=== PATIENT | female | born 1975 | race Caucasian/White ===

== ENCOUNTER 2017-07-30 14:38 | Emergency (ER) | payer BC, OTHER ==
[2017-07-30 15:43] VITALS: BP 116/74; PULSE 73; O2SAT 98
--- NOTE | 2017-07-30 15:43 | ERPHSYRPT ---
- History of Present Illness Time Seen by Provider: 07/30/17 15:38 Source: patient Exam Limitations: no limitations Patient Subjective Stated Complaint: sore throat , stuffy nose, feels terrible Triage Nursing Assessment: patient alert and oriented x3, ambulates well, gait is steady, skin warm dry and intact, pupils perrla2, lung sounds celar, nasal congestion, intermittant coughing, throat is red, . no other issues noted ears have some wax, tender upon examination no blockage of wax clogged inside Physician History: c/o sore throat, sinus congestion, for 2-3 days Timing/Duration: gradual onset ENT Location: ear (R), ear (L), throat Prearrival Treatment: over the counter meds Associated Symptoms: ear pain (R), ear pain (L), cough, nasal congestion/ drainage, sinus infection Allergies/Adverse Reactions: No Known Drug Allergies Allergy (Unverified 09/05/13 23:57) Hx Tetanus, Diphtheria Vaccination/Date Given: Yes Hx Influenza Vaccination/Date Given: No Hx Pneumococcal Vaccination/Date Given: No Immunizations Up to Date: Yes - Review of Systems Constitutional: No Symptoms Eyes: No Symptoms Ears, Nose, & Throat: Nose Congestion, Sinus Drainage, Throat Pain Respiratory: Cough Cardiac: No Symptoms Abdominal/Gastrointestinal: No Symptoms Genitourinary Symptoms: No Symptoms - Past Medical History Pertinent Past Medical History: No Neurological History: No Pertinent History ENT History: No Pertinent History Cardiac History: No Pertinent History Respiratory History: No Pertinent History Endocrine Medical History: No Pertinent History Musculoskeletal History: No Pertinent History GI Medical History: No Pertinent History History: No Pertinent History - Past Surgical History Past Surgical History: Yes Female Surgical History: Section Other Surgical History: - Social History Smoking Status: Never smoker Exposure to second hand smoke: No Drug Use: none Patient Lives Alone: No - Female History Hx Now: No - Nursing Vital Signs Nursing Vital Signs: Initial Vital Signs Temperature 97.8 F 07/30/17 14:38 Pulse Rate 77 07/30/17 14:38 Respiratory Rate 16 07/30/17 14:38 Blood Pressure 107/70 07/30/17 14:38 O2 Sat by Pulse Oximetry 99 07/30/17 14:38 Pain Scale Pain Intensity 4 - Physical Exam General Appearance: no apparent distress Eye Exam: bilateral eye: normal inspection Ear Exam: bilateral ear: auricle normal, TM normal Nasal Exam: sinus tenderness Throat Exam: moist mucus membranes Neck Exam: normal inspection Cardiovascular/Respiratory Exam: chest non-tender, normal breath sounds Abdominal Exam: non-tender SpO2 Interpretation: normal SpO2: 98 Oxygen Delivery: Room Air - Course Nursing assessment & vital signs reviewed: Yes - Progress Progress: unchanged Counseled pt/family regarding: diagnosis, need for follow-up - Departure Time of Disposition: 15:41 Departure Disposition: Home Clinical Impression: Sinusitis, acute maxillary Qualifiers: Recurrence: non-recurrent Qualified Code(s): J01.00 - Acute maxillary sinusitis , unspecified Condition: Stable Critical Care Time: No Referrals: MARTIR TOMLINSON [Primary Care Provider] - Instructions: Sinusitis Additional Instructions: UPPER RESPIRATORY INFECTIONS 1. The signs and symptoms of a cold may last up to 10 days. These illnesses are due to viruses which are not treatable with antibiotics. 2. The following suggestions can aid in recovery and to minimize symptoms: A. Increase fluid intake. B. Acetaminophen or Ibuprofen as directed. C. Avoid smoking environments as this will increase the risk of developing pneumonia. D. For children, may use a cool mist vaporizer in the child's room. 3. Contact your Family Physician if you note: A. Persisten fever >103 for more than 3 days B. Breathing difficulty C. Productive cough of yellow/green sputum D. Illness greater than 7 days E. Persistent vomiting F. Stiff neck Please follow the instructions given to you. Please take your medication as prescribed if given. If symptoms recur or get worse, come back to the emergency room if you cannot reach your primary care physician, or call your primary care physician for an appointment. Again if your symptoms get worse, come back to the emergency room. Thanks for visiting emergency room, and let us take care of you. Prescriptions: Amoxicillin 500 mg PO TID #30 tablet Guaifenesin/Dextromethorphan [Mucinex Dm ER 600-30 mg Tablet] 1 each PO BID #20 [id number]
== END 2017-07-30 15:50 | disposition home or self-care (01) ==
LOC: ED 14:38
DX: J01.00 Acute maxillary sinusitis, unspecified (principal)
CPT/HCPCS: 99282; 99283

== ENCOUNTER 2017-08-22 17:16 | Emergency (ER) | payer OTHER ==
[2017-08-22 17:33] VITALS: O2SAT 98
[2017-08-22] MEDS ORDERED: TORAdol 30 mg Injection IM ONE (17:49)
[2017-08-22] MEDS ORDERED: TORAdol 30 mg Injection ONE (17:52)
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
[2017-08-22 19:12] LABS: Bilirubin NEGATIVE (NEGATIVE); Collection Type CLEAN CATCH; Glucose NEGATIVE (NEGATIVE); Leukocyte Esterase NEGATIVE (NEGATIVE)
[2017-08-22 19:13] LABS: Blood TRACE NON-HEM Ery/ul (0-5); COMPLETE URINE MICROSCOPIC? YES
[2017-08-22 19:14] LABS: ADD URINE CULTURE? YES (NO); Bacteria FEW /HPF (NEGATIVE); Epithelial Cells MODERATE /HPF (FEW); WBC 0-2 /HPF (0-5)
[2017-08-22 19:36] VITALS: BP 119/73; PULSE 81
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
== END 2017-08-22 20:10 | disposition home or self-care (01) ==
LOC: ED 17:16
DX: S16.1XXA Strain of muscle, fascia and tendon at neck level, initial encounter (principal); S20.212A Contusion of left front wall of thorax, initial encounter; S80.02XA Contusion of left knee, initial encounter; V49.49XA Driver injured in collision with other motor vehicles in traffic accident, initial encounter
CPT/HCPCS: 71020; 72040; 73560; 81000; 87077; 87086; 87186; 96372; 96374; 99282; 99284; J1885

== ENCOUNTER 2019-01-09 13:08 | Emergency (ER) | payer MEDICAID, OTHER ==
[2019-01-09 13:20] VITALS: BP 127/85
[2019-01-09] MEDS ORDERED: Rocephin 1000 MG INJ IM ONE (13:29)
[2019-01-09] MEDS ORDERED: XYLOCAINE HCl Viscous MM ONE (13:30)
[2019-01-09] MEDS ORDERED: Marcaine 0.5%/Epinephrine 10 ML IJ ONE (13:30)
[2019-01-09] MEDS ORDERED: XYLOCAINE HCl Viscous ONE (13:34)
[2019-01-09] MEDS ORDERED: Marcaine 0.5%/Epinephrine 10 ML ONE (13:34)
[2019-01-09] MEDS ORDERED: Rocephin 1000 MG INJ ONE (13:37)
--- NOTE | 2019-01-09 13:37 | ERPHSYRPT ---
- History of Present Illness Time Seen by Provider: 01/09/19 13:11 Source: patient, family Exam Limitations: no limitations Patient Subjective Stated Complaint: dental abscess on top left of mouth Triage Nursing Assessment: Pt c/o of right top mouth pain, mouth is swollen, vitals wnl, rates pain 5/10 Physician History: patient with toothache left upper post; now swelling; no fever; no trouble breathing or swallowing or talking; sligh pain left ear; otherwise no complaints Timing/Duration: abrupt onset, yesterday Severity: moderate ENT Location: ear (L), mouth Prearrival Treatment: over the counter meds Modifying Factors: Improves With: nothing Associated Symptoms: ear pain (L), facial pain/swelling, tooth pain, No cough, No fever, No change in hearing, No drooling, No headache, No jaw pain, No nasal congestion/drainage, No epistaxis, No neck pain, No ringing of ears, No sore throat, No difficulty swallowing, No voice change Allergies/Adverse Reactions: No Known Drug Allergies Allergy (Verified 01/09/19 13:20) Hx Tetanus, Diphtheria Vaccination/Date Given: No Hx Influenza Vaccination/Date Given: No Hx Pneumococcal Vaccination/Date Given: No - Review of Systems Constitutional: No Symptoms Eyes: No Symptoms Ears, Nose, & Throat: Ear Pain (left mild), Mouth Pain, No Tinnitus, No Nose Congestion, No Epistaxis, No Throat Pain, No Throat Swelling, No Painful Swallowing Respiratory: No Cough, No Cyanosis, No Dyspnea Cardiac: No Chest Pain, No Palpitations, No Syncope Abdominal/Gastrointestinal: No Abdominal Pain, No Nausea, No Vomiting, No Diarrhea Genitourinary Symptoms: No Symptoms Musculoskeletal: No Symptoms Skin: No Symptoms Neurological: No Symptoms Psychological: No Symptoms Endocrine: No Symptoms Hematologic/Lymphatic: No Symptoms Immunological/Allergic: No Symptoms - Past Medical History Pertinent Past Medical History: No Neurological History: No Pertinent History ENT History: No Pertinent History Cardiac History: No Pertinent History Respiratory History: No Pertinent History Endocrine Medical History: No Pertinent History Musculoskeletal History: No Pertinent History GI Medical History: No Pertinent History History: No Pertinent History - Past Surgical History Past Surgical History: Yes Female Surgical History: Section Other Surgical History: - Social History Smoking Status: Former smoker Exposure to second hand smoke: No Alcohol Use: Socially Drug Use: none Patient Lives Alone: No Significant Family History: no pertinent family hx - Female History Hx Now: No (tubal) - Nursing Vital Signs Nursing Vital Signs: Initial Vital Signs Temperature 98.5 F 01/09/19 13:14 Pulse Rate 77 01/09/19 13:14 Blood Pressure 127/85 01/09/19 13:14 O2 Sat by Pulse Oximetry 100 01/09/19 13:14 Pain Scale Pain Intensity 5 - Physical Exam General Appearance: moderate distress, alert, other (swelling left cheek) Eye Exam: bilateral eye: normal inspection, PERRL, EOMI Ear Exam: bilateral ear: auricle normal, canal normal, TM normal Nasal Exam: normal inspection, sinus tenderness (left dull poor transillumination), No dried blood, No foreign body Throat Exam: normal, pharynx normal, dental tenderness (left upper with caries mid post), moist mucus membranes, No excessive drooling, No foreign body, No mandibular swelling, No maxillary swelling, No pharynx swelling, No pharynx tenderness, No tongue swollen, No tonsillar exudate, No tonsillar swelling, No trismus, No uvula swelling, No voice changes Neck Exam: normal inspection, non-tender, supple, full range of motion, trachea midline, No lymphadenopathy (R), No lymphadenopathy (L), No meningismus Cardiovascular/Respiratory Exam: chest non-tender, normal breath sounds, regular rate/rhythm, heart sounds normal, no ecchymosis, no JVD, no M/R/G, no respiratory distress Abdominal Exam: non-tender, soft, no organomegaly Neurologic Exam: alert, oriented x 3, cooperative, scrap collector II-XII nml as tested, nml station & gait Skin Exam: normal color, warm, dry, No rash SpO2 Interpretation: normal SpO2: 100 O2 Delivery: Room Air Procedures - Additional Procedures Progress: Dental block 3 cc Marcaine with to left upper canine area- patietn tolerated well; good relief with injcetion - Course Nursing assessment & vital signs reviewed: Yes Ordered Tests: Active Orders 24 hr Category Date Time Status Cold Application STAT Care 01/09/19 13:30 Active Re-Check Vital Signs STAT Care 01/09/19 13:30 Active Medication Summary Discontinued Medications Generic Name Dose Route Start Last Admin Trade Name Freq PRN Reason Stop Dose Admin Bupivacaine HCl/Epinephrine Bitart 5 ml 01/09/19 13:30 01/09/19 13:37 Marcaine 0.5%/Epinephrine 10 Ml IJ 01/09/19 13:31 5 ml STAT ONE Administration Bupivacaine HCl/Epinephrine Bitart Confirm 01/09/19 13:34 Marcaine 0.5%/Epinephrine 10 Ml Administered 01/09/19 13:35 Dose 10 ml .ROUTE .STK-MED ONE Ceftriaxone Sodium 1,000 mg 01/09/19 13:29 01/09/19 13:43 Rocephin 1000 Mg Inj IM 01/09/19 13:30 1,000 mg STAT ONE Administration Ceftriaxone Sodium Confirm 01/09/19 13:37 Rocephin 1000 Mg Inj Administered 01/09/19 13:38 Dose 1,000 mg .ROUTE .STK-MED ONE Lidocaine HCl 5 ml 01/09/19 13:30 01/09/19 13:37 Xylocaine Hcl Viscous * MM 01/09/19 13:31 5 ml STAT ONE Administration Lidocaine HCl Confirm 01/09/19 13:34 Xylocaine Hcl Viscous * Administered 01/09/19 13:35 Dose 3 ml .ROUTE .STK-MED ONE - Progress Progress: improved (after Dental block), re-examined (after meds) Progress Note: 01/09/19 13:36 discusse findings and treatment plan; will give dental block and Rocephin IM and recheck 01/09/19 13:51 patient got good relief with block- instructions given Counseled pt/family regarding: diagnosis, need for follow-up - Departure Time of Disposition: 13:51 Departure Disposition: Home Clinical Impression: Dental caries, Dental abscess Condition: Stable Critical Care Time: No Referrals: MARTIR TOMLINSON [Primary Care Provider] - Instructions: Tooth Decay, Adult Additional Instructions: soft diet; H2O2 gargle with saline; follow up DDS Follow-up with family doctor as directed. Call for appointment. Return if any problems. If you smoke please stop. Call or follow up with your family doctor for assistance if you need it to stop. Please wear your seatbelt when driving. Have a nice day. Thank you for allowing us to participate in your care today. :o) Dr Padilla Valle Prescriptions: Naproxen Sodium [Anaprox Ds] 550 mg PO Q8H PRN PRN #14 tablet PRN Reason: Pain Cephalexin Mh 500 mg [Keflex 500 mg] 500 mg PO Q6H #40 capsule
[2019-01-09 14:36] VITALS: PULSE 76; O2SAT 98
== END 2019-01-09 14:24 | disposition home or self-care (01) ==
LOC: ED 13:08
DX: K02.9 Dental caries, unspecified (principal); K04.7 Periapical abscess without sinus
CPT/HCPCS: 96372; 99284; J0696; A9270-GY

== ENCOUNTER 2019-06-17 13:13 | Emergency (ER) | payer MEDICAID ==
--- NOTE | 2019-06-17 13:48 | ERPHSYRPT ---
- History of Present Illness Time Seen by Provider: 06/17/19 13:37 Source: patient Exam Limitations: no limitations Patient Subjective Stated Complaint: Pt states "I think I have impetigo. My grandaughter was diagnosed with it and now my oldest daughter i think has it as well." Triage Nursing Assessment: Pt presented alert and oriented X 3, skin pwd Pt ambulates with an upright steady gait, able to speak in clear full sentences. PT in no apparent respiratory distress. red spots on arms, legs, and back. Physician History: Pt noticed few, scattered itchy red spots on her arms and right upper, lateral thigh yesterday. She is concerned, since her granddaughter was diagnosed with Impetigo 3 days ago, and her daughter developed similar rash. She denies headaches, sore throat, cough, SOB, nausea, fever, other complaints, she does not take anything for these rashes. Timing/Duration: yesterday Quality: itchy Severity: mild Location: extremities Possible Causes: no cause identified Modifying Factors: Improves With: other (none) Allergies/Adverse Reactions: No Known Drug Allergies Allergy (Verified 01/09/19 13:20) Hx Tetanus, Diphtheria Vaccination/Date Given: No Hx Influenza Vaccination/Date Given: No Hx Pneumococcal Vaccination/Date Given: No Immunizations Up to Date: Yes - Review of Systems Constitutional: No Symptoms Eyes: No Symptoms Ears, Nose, & Throat: No Symptoms Respiratory: No Symptoms Cardiac: No Symptoms Abdominal/Gastrointestinal: No Symptoms Genitourinary Symptoms: No Symptoms Musculoskeletal: No Symptoms Skin: Pruritis, Rash Neurological: No Symptoms All Other Systems: Reviewed and Negative - Past Medical History Pertinent Past Medical History: No Neurological History: No Pertinent History ENT History: No Pertinent History Cardiac History: No Pertinent History Respiratory History: No Pertinent History Endocrine Medical History: No Pertinent History Musculoskeletal History: No Pertinent History GI Medical History: No Pertinent History History: No Pertinent History Other Medical History: L knee scope 10/2017 - Past Surgical History Past Surgical History: Yes Female Surgical History: Section Other Surgical History: - Social History Smoking Status: Former smoker Exposure to second hand smoke: No Alcohol Use: Socially Drug Use: none Patient Lives Alone: No Significant Family History: no pertinent family hx - Female History Hx Last Menstrual Period: 06/17/2019 Hx Now: No - Nursing Vital Signs Nursing Vital Signs: Initial Vital Signs Temperature 98.4 F 08/12/19 13:24 Pulse Rate 82 06/17/19 13:24 Respiratory Rate 18 06/17/19 13:24 Blood Pressure 118/71 06/17/19 13:24 O2 Sat by Pulse Oximetry 98 06/17/19 13:24 Pain Scale Pain Intensity 0 - Physical Exam General Appearance: no apparent distress Eye Exam: eyes nml inspection Ears, Nose, Throat Exam: normal ENT inspection, pharynx normal, moist mucous membranes, pharyngeal erythema Neck Exam: normal inspection, non-tender, supple, No JVD Respiratory Exam: normal breath sounds, lungs clear, airway intact, No rhonchi, No wheezing, No stridor Cardiovascular Exam: regular rate/rhythm, normal heart sounds, normal peripheral pulses, capillary refill <2 sec, No murmur Gastrointestinal/Abdomen Exam: soft, normal bowel sounds, No tenderness Back Exam: normal inspection, No CVA tenderness Extremity Exam: normal inspection, No calf tenderness, No pedal edema Neurologic Exam: alert, oriented x 3, cooperative, normal mood/affect Skin Exam: normal color, warm, dry, rash (few, scattered 3-4 mm pinkish exanthems on both forearms, hand, and one small group of similar lesions on the right upper lateral thigh, no blisters, hives or other lesions, no pustuloes or edema, no enlarged regional lymph nodes.) Lymphatic Exam: No adenopathy, No axilla node tender (L), No axilla node tender (R), No inguinal node tender (L), No inguinal node tender (R) SpO2 Interpretation: normal SpO2: 98 O2 Delivery: Room Air - Course Nursing assessment & vital signs reviewed: Yes - Progress Progress: unchanged Progress Note: 06/17/19 13:47 Pt was reassured about the beingn nature of her lesions, impetigo is very unlikely at this time, she si going to be started on Medrol dosepak, advised to rest x 1-2 days, drink plenty of fluids, and take Benadryl use externals as needed, and follow up with her physician in 1 week, if not better. Counseled pt/family regarding: diagnosis, need for follow-up - Departure Departure Disposition: Home Clinical Impression: Rash Condition: Stable Critical Care Time: No Referrals: MARTIR TOMLINSON [Primary Care Provider] - Instructions: Impetigo, Skin Rash (DC), Insect Bites and Stings (DC) Additional Instructions: Rest x 2-3 days, drink plenty of fluids, take Benadryl and use Calamine, other externals to rash as needed, and follow up with your physician in 1 week if not better, return if severe swelling, difficulty breathing, throat swelling, chest pain, vomiting, fever> 102 F! Prescriptions: Methylprednisolone Packet [Medrol Dosepack] 4 mg PO UD #1 packet
[2019-06-17 14:10] VITALS: BP 121/77; PULSE 71; O2SAT 96
== END 2019-06-17 14:14 | disposition home or self-care (01) ==
LOC: ED 13:13
DX: R21 Rash and other nonspecific skin eruption (principal)
CPT/HCPCS: 99283

== ENCOUNTER 2019-10-08 00:04 | Emergency (ER) | payer MEDICAID ==
[2019-10-08] MEDS ORDERED: DUONEB 0.5-3 MG/3 ml Neb IH ONE ×2 (00:19→00:26)
[2019-10-08] MEDS ORDERED: DECADRON 10MG INJ. IM ONE (00:22)
[2019-10-08] MEDS ORDERED: DECADRON 10MG INJ. ONE (00:25)
--- NOTE | 2019-10-08 00:33 | ERPHSYRPT ---
- History of Present Illness Time Seen by Provider: 10/08/19 00:15 Source: patient Exam Limitations: no limitations Patient Subjective Stated Complaint: pt states she has had a sore throat and cough for 2 days. states he cough has been getting worse even after otc meds Triage Nursing Assessment: pt alert and oriented, answers questions approp. pt ambulatory with steady gait noted. skin pink warm and dry. respirations nonlabored with lungs cta. Physician History: Cough, chest congestion and sore throat for two days. Timing/Duration: day(s) (2) Cough Quality/Degree: moderate Possible Cause: no prior episodes Modifying Factors: Worsens With: coughing, deep breath Associated Symptoms: cough, nasal congestion, nasal drainage, sore throat, wheezing, No fever, No chills, No chest pain/soreness, No dizziness, No earache , No facial pain, No headache, No lightheadedness, No muscle aches, No shortness of breath, No sinus infection International travel in last 2 weeks: No Allergies/Adverse Reactions: No Known Drug Allergies Allergy (Verified 10/08/19 00:23) Hx Tetanus, Diphtheria Vaccination/Date Given: No Hx Influenza Vaccination/Date Given: No Hx Pneumococcal Vaccination/Date Given: No Immunizations Up to Date: No - Review of Systems Constitutional: No Fever, No Chills, No Fatigue Eyes: No Eye Pain, No Eye Redness Ears, Nose, & Throat: Nose Congestion, Throat Pain, No Mouth Pain, No Mouth Swelling, No Painful Swallowing Respiratory: Cough, No Dyspnea Cardiac: No Chest Pain, No Edema, No Syncope Abdominal/Gastrointestinal: No Abdominal Pain, No Nausea, No Vomiting, No Diarrhea, No Hematemesis, No Hematochezia, No Melena Genitourinary Symptoms: No Dysuria, No Hematuria, No Flank Pain Musculoskeletal: No Back Pain, No Neck Pain, No Myalgias Skin: No Rash Neurological: No Dizziness, No Focal Weakness, No Headache, No Parasthesia, No Sensory Changes Psychological: No Symptoms Endocrine: No Excessive Sweating Hematologic/Lymphatic: No Easy Bleeding, No Easy Bruising All Other Systems: Reviewed and Negative - Past Medical History Pertinent Past Medical History: No Neurological History: Migraines ENT History: No Pertinent History Cardiac History: No Pertinent History Respiratory History: No Pertinent History Endocrine Medical History: No Pertinent History Musculoskeletal History: Other GI Medical History: No Pertinent History History: No Pertinent History Other Medical History: KNEE SURGERY NOTED ABOVE. - Past Surgical History Past Surgical History: Yes Female Surgical History: Section Other Surgical History: - Social History Smoking Status: Current some day smoker How long have you smoked: 20+ Exposure to second hand smoke: No Alcohol Use: Socially Drug Use: none Patient Lives Alone: No Significant Family History: no pertinent family hx - Female History Hx Last Menstrual Period: current Hx Now: No - Nursing Vital Signs Nursing Vital Signs: Initial Vital Signs Temperature 98.2 F 10/08/19 00:12 Pulse Rate 93 H 10/08/19 00:12 Respiratory Rate 16 10/08/19 00:12 Blood Pressure 110/79 10/08/19 00:12 O2 Sat by Pulse Oximetry 99 10/08/19 00:12 Pain Scale Pain Intensity 6 - Physical Exam General Appearance: no apparent distress, alert Eye Exam: PERRL/EOMI, eyes nml inspection, No scleral icterus, No pale conjunctivae Ears, Nose, Throat Exam: normal ENT inspection, TMs normal, pharynx normal, moist mucous membranes Neck Exam: normal inspection, non-tender, supple, full range of motion, No meningismus, No Brudzinski, No lymphadenopathy Respiratory Exam: normal breath sounds, lungs clear, airway intact, diminished breath sounds, No chest tenderness, No respiratory distress, No accessory muscle use, No crackles/rales, No rhonchi, No wheezing Cardiovascular Exam: regular rate/rhythm, normal heart sounds, normal peripheral pulses, capillary refill <2 sec Gastrointestinal/Abdomen Exam: soft, normal bowel sounds, No tenderness, No distention, No guarding, No rebound Back Exam: normal inspection, No CVA tenderness, No vertebral tenderness Extremity Exam: normal inspection, normal range of motion, pelvis stable, No calf tenderness, No patrick's sign, No swelling Neurologic Exam: alert, oriented x 3, cooperative, 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, normal mood/affect, sensation nml, No motor deficits Skin Exam: normal color, warm, dry, No rash, No jaundice, No cyanosis Lymphatic Exam: No adenopathy SpO2 Interpretation: normal SpO2: 99 O2 Delivery: Room Air - Course Nursing assessment & vital signs reviewed: Yes Ordered Tests: Active Orders 24 hr Category Date Time Status Peak Expiratory Flow Rate ONCE RT 10/08/19 00:30 Active Respiratory Therapy Assessment DAILY RT 10/08/19 00:30 Active Medication Summary Discontinued Medications Generic Name Dose Route Start Last Admin Trade Name Taylor PRN Reason Stop Dose Admin Albuterol/Ipratropium 3 ml 10/08/19 00:19 12 00:30 Duoneb 0.5-3 Mg/3 Ml Neb IH 10/08/19 00:20 3 ml STAT ONE Administration Albuterol/Ipratropium Confirm 10/08/19 00:26 Duoneb 0.5-3 Mg/3 Ml Neb Administered 10/08/19 00:27 Dose 3 ml IH .STK-MED ONE Dexamethasone Sodium Phosphate 8 mg 10/08/19 00:22 10/08/19 00:41 Decadron 10mg Inj. IM 10/08/19 00:23 8 mg STAT ONE Administration Dexamethasone Sodium Phosphate Confirm 10/08/19 00:25 Decadron 10mg Inj. Administered 10/08/19 00:26 Dose 10 mg .ROUTE .STK-MED ONE Lab/Rad Data: Laboratory Results 10/08/19 Range/Units 00:25 Influenza Type A Ag NEGATIVE (NEGATIVE) Influenza Type B Ag NEGATIVE (NEGATIVE) RSV (PCR) NEGATIVE (Negative) Group A Strep Antibody NEGATIVE (NEGATIVE) - Progress Progress: re-examined Air Movement: good Progress Note: 10/08/19 01:29 CTA bilaterally with improved airflow and equal breath sounds with no wheeze, rhonchi or crackles Blood Culture(s) Obtained: No Antibiotics given: No Counseled pt/family regarding: lab results, diagnosis, rad results - Departure Departure Disposition: Home Clinical Impression: Acute upper respiratory infection, unspecified Acute bronchitis Qualifiers: Bronchitis organism: unspecified organism Qualified Code(s): J20.9 - Acute bronchitis, unspecified Acute pharyngitis Qualifiers: Pharyngitis/tonsillitis etiology: unspecified etiology Qualified Code(s): J02.9 - Acute pharyngitis, unspecified Condition: Good Critical Care Time: No Referrals: MARTIR TOMLINSON [Primary Care Provider] - Follow Up with PCP/3 days Instructions: Acute Bronchitis, Adult (DC), Viral Upper Respiratory Infection, Adult (DC), Cough, Adult (DC) Additional Instructions: Return immediately back to the emergency department if any new shortness of breath, chest congestion, chest tightness, chest pain, productive cough, fever greater than 101 or any other concerning signs or symptoms that were not present in today's emergency room visit for immediate reevaluation in the emergency department Forms: Work/School Release Form Prescriptions: Albuterol Sulfate [Proair Hfa] 8.5 gm IH Q4H PRN PRN #1 [id number] PRN Reason: Wheezing/Chest Congestion Ipratropium [place] 2 spray NS Q8H PRN PRN #1 spray PRN Reason: Nasal Congestion/Rhinorrhea Promethazine/Dextromethorphan [Promethazine-Dm Solution] 5 ml PO Q6-8HPRN PRN # 90 ml PRN Reason: Cough
[2019-10-08 01:17] LABS: Group A Strep NEGATIVE (NEGATIVE); INFLUENZA A NEGATIVE (NEGATIVE); INFLUENZA B NEGATIVE (NEGATIVE); RESPIRATORY SYNCTIAL VIRUS NEGATIVE (Negative)
[2019-10-08 01:32] VITALS: O2SAT 99
[2019-10-08 02:10] VITALS: BP 124/75; PULSE 67
== END 2019-10-08 02:00 | disposition home or self-care (01) ==
LOC: ED 00:04
DX: J20.9 Acute bronchitis, unspecified (principal); J02.9 Acute pharyngitis, unspecified; J06.9 Acute upper respiratory infection, unspecified
CPT/HCPCS: 87631; 87651; 94150; 94640; 96372; 99284; J1100; A9270-GY

== ENCOUNTER 2020-08-25 16:42 | Emergency (ER) | payer SELFPAY ==
[2020-08-25] MEDS ORDERED: DECADRON 10MG INJ. PO ONE (16:55)
--- NOTE | 2020-08-25 17:39 | ERPHSYRPT ---
- History of Present Illness Time Seen by Provider: 08/25/20 16:50 Source: patient Exam Limitations: no limitations Patient Subjective Stated Complaint: Pt states "For the past two days I have had a sore throat and there are blisters on it. My ears are clogged as well." Triage Nursing Assessment: Pt presented alert and oriented X 3, skinpwd. Pt ambulates with an upright steady gait, able to speak in clear full sentences pt in no apparent respiratory distress. Physician History: Patient is a 44-year-old female presents to our ED with complaint of a sore throat. Symptoms started 2 days ago. Patient observed her throat in the mirror and observed small bumps in the back of her throat. Patient states she feels congested. Her ears are clogged. Symptoms are constant. Symptoms are moderate in intensity. No specific worsening improving factors. Patient experiences the symptoms seasonally and states that a steroid resolves her symptoms. No neck pain. No photophobia. No headache. No nausea or vomiting. No diarrhea. No rash. No obvious sick contacts. Patient voices no other complaints concerns at this time. Timing/Duration: days Severity: moderate (Days) ENT Location: ear (R), ear (L) (Both ears and throat are involved.), throat Prearrival Treatment: no prearrival treatment Modifying Factors: Improves With: nothing Associated Symptoms: No cough, No dizziness, No drooling, No ear drainage, No facial pain/swelling, No headache, No hearing loss, No jaw pain, No malaise, No motion sickness, No nasal congestion/drainage, No nasal foreign body, No neck pain, No poor solids intake, No ringing of ears, No sinus infection Allergies/Adverse Reactions: Penicillins Allergy (Intermediate, Verified 08/25/20 16:53) Hives Home Medications: No Reportable Medications [No Reported Medications] 08/25/20 [History] Hx Tetanus, Diphtheria Vaccination/Date Given: Yes Hx Influenza Vaccination/Date Given: Yes Hx Pneumococcal Vaccination/Date Given: No Immunizations Up to Date: Yes Travel Risk - International Travel Have you traveled outside of the country in past 3 weeks: No - Coronavirus Screening Are you exhibiting any of the following symptoms?: No Close contact with a COVID-19 positive Pt in past 14-21 Days: No - Review of Systems Constitutional: No Symptoms, No Fever, No Chills Eyes: No Symptoms Ears, Nose, & Throat: No Symptoms Respiratory: No Symptoms, No Cough, No Dyspnea Cardiac: No Symptoms, No Chest Pain, No Edema, No Syncope Abdominal/Gastrointestinal: No Symptoms, No Abdominal Pain, No Nausea, No Vomiting, No Diarrhea Genitourinary Symptoms: No Symptoms, No Dysuria Musculoskeletal: No Symptoms, No Back Pain, No Neck Pain Skin: No Symptoms, No Rash Neurological: No Symptoms, No Dizziness, No Focal Weakness, No Sensory Changes Psychological: No Symptoms Endocrine: No Symptoms Hematologic/Lymphatic: No Symptoms Immunological/Allergic: No Symptoms All Other Systems: Reviewed and Negative - Past Medical History Pertinent Past Medical History: Yes Neurological History: Migraines ENT History: No Pertinent History Cardiac History: No Pertinent History Respiratory History: No Pertinent History Endocrine Medical History: No Pertinent History Musculoskeletal History: Other GI Medical History: No Pertinent History History: No Pertinent History Other Medical History: KNEE SURGERY NOTED ABOVE. - Past Surgical History Past Surgical History: Yes Female Surgical History: Section Other Surgical History: - Social History Smoking Status: Current some day smoker How long have you smoked: years Exposure to second hand smoke: Yes Alcohol Use: Socially Drug Use: none Patient Lives Alone: No Significant Family History: no pertinent family hx - Female History Hx Last Menstrual Period: 07/31/2020 Hx Now: No - Nursing Vital Signs Nursing Vital Signs: Initial Vital Signs Temperature 97.8 F 08/25/20 16:47 Pulse Rate 72 08/25/20 16:47 Respiratory Rate 20 08/25/20 16:47 Blood Pressure 131/68 08/25/20 16:47 O2 Sat by Pulse Oximetry 99 08/25/20 16:47 Pain Scale Pain Intensity 5 - Physical Exam General Appearance: no apparent distress, alert Eye Exam: bilateral eye: normal inspection, PERRL, EOMI Ear Exam: bilateral ear: auricle normal, canal normal, TM normal Nasal Exam: normal inspection Throat Exam: pharynx normal, moist mucus membranes, No dental tenderness, No excessive drooling, No tonsillar exudate, No trismus, No uvula swelling (Mildly erythematous oropharynx. No obvious intraoral lesions.) Neck Exam: normal inspection, non-tender, supple Cardiovascular/Respiratory Exam: normal breath sounds, regular rate/rhythm Abdominal Exam: non-tender, soft Neurologic Exam: alert, oriented x 3, sensation nml, No motor deficits Skin Exam: normal color, warm, dry SpO2 Interpretation: normal SpO2: 99 O2 Delivery: Room Air - Course Nursing assessment & vital signs reviewed: Yes Ordered Tests: Medication Summary Discontinued Medications Generic Name Dose Route Start Last Admin Trade Name Taylor PRN Reason Stop Dose Admin Dexamethasone Sodium Phosphate 10 mg 08/25/20 16:55 Decadron 10mg Inj. PO 08/25/20 16:56 STAT ONE Lab/Rad Data: Laboratory Results 08/25/20 Range/Units 17:15 Group A Strep Antibody NOT DETECTED (NEGATIVE) - Progress Progress: improved Progress Note: 08/25/20 17:54 Patient reassessed. She feels better. Patient received a dose of Decadron orally. Rapid strep negative. Physical exam consistent with viral URI. No indication for further work-up or treatment at this time. Will discharge patient home. Patient voices no other complaints or concerns at this time. 08/25/20 17:58 Patient declined Covid testing. She is tested weekly at her work. Last test was negative. Counseled pt/family regarding: lab results, diagnosis, need for follow-up - Departure Departure Disposition: Home Clinical Impression: Viral URI, Nasal congestion Condition: Stable Critical Care Time: No Referrals: MARTIR TOMLINSON [Primary Care Provider] - Additional Instructions: Discharge/Care Plan NURISCECELIA NADER was seen on 08/25/20 in the Emergency Room. The patient was counseled regarding Diagnosis,Lab results, Imaging studies, need for follow up and when to return to the Emergency Room. Prescriptions given: Discharge Note I have spoken with the patient and/or caregivers. I have explained the patient's condition, diagnosis and treatment plan based on the information available to me at this time. I have answered the patient's and/or caregiver's questions and addressed any concerns. The patient and/or caregivers have as good understanding of the patient's diagnosis, condition and treatment plan as can be expected at this point. The vital signs have been stable. The patient's condition is stable and appropriate for discharge from the emergency department. The patient will pursue further outpatient evaluation with the primary care physician or other designated or consulting physician as outlined in the discharge instructions. The patient and/or caregivers are agreeable to this plan of care and follow-up instructions have been explained in detail. The patient and/or caregivers have received these instruction. The patient/and or caregivers are aware that any significant change in condition or worsening of symptoms should prompt an immediate return to this or the closest emergency department or call 911.
[2020-08-25] MEDS ORDERED: DECADRON 10MG INJ. ONE (17:58)
[2020-08-25 18:06] VITALS: BP 137/67; PULSE 75; O2SAT 96
== END 2020-08-25 18:15 | disposition home or self-care (01) ==
LOC: ED 16:42
DX: J06.9 Acute upper respiratory infection, unspecified (principal); R09.81 Nasal congestion
CPT/HCPCS: 87651; 99283; J1100

== ENCOUNTER 2024-06-10 23:22 | Emergency (ER) | payer OTHER ==
[2024-06-11 02:07] VITALS: TEMP 97.2
--- NOTE | 2024-06-11 02:38 | ERPHSYRPT ---
- History of Present Illness Time Seen by Provider: 06/11/24 02:10 Source: patient Exam Limitations: no limitations Patient Subjective Stated Complaint: pt states she was outside working all day and thinks she got too hot. has been feeling ill and vomiting. Triage Nursing Assessment: pt alert and oriented, answers questions approp. pt a mbualtes into room with steady gait noted. respirations nonlabored. skin warm and dry. abd soft and nontender to palpation. bowel sounds present. Timing/Duration: today Severity: mild Associated Symptoms: nausea, vomiting Allergies/Adverse Reactions: Penicillins Allergy (Intermediate, Verified 06/11/24 02:24) Hives Home Medications: Buspirone HCl 10 mg PO BID 06/11/24 [History] Fluoxetine HCl [Prozac] 40 mg PO DAILY 06/11/24 [History] Metoprolol Succinate 25 mg Xl* [Toprol-Xl 25MG Tablets] 25 mg PO DAILY 06/11/24 [History] Topiramate [Topamax] 50 mg PO DAILY 06/11/24 [History] Hx Tetanus, Diphtheria Vaccination/Date Given: Yes Hx Influenza Vaccination/Date Given: Yes Hx Pneumococcal Vaccination/Date Given: No Immunizations Up to Date: Yes Travel Risk - International Travel Have you traveled outside of the country in past 3 weeks: No - Emerging Infectious Disease Are you exhibiting symptoms associated with any current EIDs: No - Review of Systems Eyes: No Symptoms Ears, Nose, & Throat: No Symptoms, Throat Swelling Cardiac: No Symptoms Abdominal/Gastrointestinal: Nausea, Vomiting Genitourinary Symptoms: No Symptoms Neurological: Headache Psychological: No Symptoms Endocrine: No Symptoms - Past Medical History Pertinent Past Medical History: Yes Neurological History: Migraines ENT History: No Pertinent History Cardiac History: No Pertinent History Respiratory History: No Pertinent History Endocrine Medical History: No Pertinent History Musculoskeletal History: Other GI Medical History: No Pertinent History History: No Pertinent History Other Medical History: KNEE SURGERY NOTED ABOVE. - Past Surgical History Past Surgical History: Yes Musculoskeletal: Orthopedic Surgery Female Surgical History: Section Other Surgical History: , knee surgery Significant Family History: no pertinent family hx - Female History Hx Last Menstrual Period: post menopause Hx Now: No - Social History Smoking Status: Former smoker How long have you smoked: years Exposure to second hand smoke: Yes Alcohol Use: Socially Drug Use: none Patient Lives Alone: No - Social Determinants of Health Will the patient participate in the screening: Declined to provide - Nursing Vital Signs Nursing Vital Signs: Initial Vital Signs Temperature 97.2 F 06/11/24 02:03 Pulse Rate 64 06/11/24 02:03 Respiratory Rate 16 06/11/24 02:03 Blood Pressure 130/71 06/11/24 02:03 O2 Sat by Pulse Oximetry 100 06/11/24 02:03 Pain Scale Pain Intensity 7 - Physical Exam General Appearance: no apparent distress Eye Exam: PERRL/EOMI Ears, Nose, Throat Exam: normal ENT inspection Neck Exam: normal inspection Respiratory Exam: normal breath sounds Cardiovascular Exam: regular rate/rhythm Gastrointestinal/Abdomen Exam: soft SpO2: 100 Ordered Tests: Medication Summary Discontinued Medications Generic Name Dose Route Start Last Admin Trade Name Freq PRN Reason Stop Dose Admin Prochlorperazine Edisylate 10 mg 06/11/24 02:33 Prochlorperazine Edisylate 10 Mg/2 Ml Vial IM 06/11/24 02:34 STAT ONE - Progress Progress Note: Patient was seen and evaluated for her migraine and nausea she was given Benadryl and Compazine here in the department she will be discharged home with a prescription of Zofran and was informed with the need to drink plenty of fluids and stay out of the sun 06/11/24 02:36 Medical Desision Making - Discussion of managment Agreed on:: need for follow-up - Departure Clinical Impression: Migraine headache, Nausea Condition: Good Critical Care Time: No Referrals: MARTIR TOMLINSON [Primary Care Provider] - Follow up/PCP as directed Prescriptions: Ondansetron ODT 4 MG [Zofran Odt 4 mg] 4 mg PO Q6H PRN PRN #10 tablet PRN Reason: Nausea
[2024-06-11] MEDS ORDERED: BENADRYL 50 MG/ML ONE (02:43)
[2024-06-11] MEDS ORDERED: Compazine 10 MG/2 ML ONE (02:43)
[2024-06-11] MEDS: Compazine 10 MG/2 ML IM ONE (02:48)
[2024-06-11] MEDS: BENADRYL 50 MG/ML IM ONE (02:48)
[2024-06-11 03:19] VITALS: BP 97/59; PULSE 73; RESP 18; O2SAT 97
== END 2024-06-11 03:23 | disposition home or self-care (01) ==
LOC: ED 23:22
DX: G43.909 Migraine, unspecified, not intractable, without status migrainosus (principal); R11.0 Nausea; Z79.899 Other long term (current) drug therapy
CPT/HCPCS: 96372; 99283; J1200

== ENCOUNTER 2024-06-16 19:51 | Emergency (ER) | payer OTHER ==
[2024-06-16 20:08] VITALS: TEMP 99.3
--- NOTE | 2024-06-16 20:16 | ERPHSYRPT ---
- History of Present Illness Time Seen by Provider: 06/16/24 20:03 Source: patient Exam Limitations: no limitations Patient Subjective Stated Complaint: pt states she thinks she has the covid or flu. has been coughing, had body aches Triage Nursing Assessment: pt alert and oriented, answers questions approp. respirations nonlabored. skin warm and dry. occasional moist cough noted. lung sounds clear bilat. Physician History: Today pt c/o temperature of 99.1 degrees, generalized body aches and cough productive of yellow-white phlegm; denies chest pain, shortness of air, abdominal pain. Allergies/Adverse Reactions: Penicillins Allergy (Intermediate, Verified 06/16/24 20:08) Hives Home Medications: Buspirone HCl 10 mg PO BID 06/11/24 [History] Fluoxetine HCl [Prozac] 40 mg PO DAILY 06/11/24 [History] Metoprolol Succinate 25 mg Xl* [Toprol-Xl 25MG Tablets] 25 mg PO DAILY 06/11/24 [History] Topiramate [Topamax] 50 mg PO DAILY 06/11/24 [History] Hx Tetanus, Diphtheria Vaccination/Date Given: Yes Hx Influenza Vaccination/Date Given: Yes Hx Pneumococcal Vaccination/Date Given: No Immunizations Up to Date: Yes Travel Risk - International Travel Have you traveled outside of the country in past 3 weeks: No - Emerging Infectious Disease Are you exhibiting symptoms associated with any current EIDs: Yes Symptoms: Cough: New Onset, Headaches/Body Aches/ - Review of Systems Respiratory: Cough, No Dyspnea Cardiac: No Chest Pain Abdominal/Gastrointestinal: No Abdominal Pain, No Nausea, No Vomiting, No Diarrhea Musculoskeletal: Arthralgias Neurological: No Headache - Past Medical History Pertinent Past Medical History: Yes Neurological History: Migraines ENT History: No Pertinent History Cardiac History: No Pertinent History Respiratory History: No Pertinent History Endocrine Medical History: No Pertinent History Musculoskeletal History: Other GI Medical History: No Pertinent History History: No Pertinent History Other Medical History: KNEE SURGERY NOTED ABOVE. - Past Surgical History Past Surgical History: Yes Musculoskeletal: Orthopedic Surgery Female Surgical History: Section Other Surgical History: , knee surgery Significant Family History: no pertinent family hx - Female History Hx Last Menstrual Period: post menopause Hx Now: No - Social History Smoking Status: Former smoker How long have you smoked: years Exposure to second hand smoke: No Alcohol Use: Socially Drug Use: none Patient Lives Alone: No - Social Determinants of Health Will the patient participate in the screening: Declined to provide - Nursing Vital Signs Nursing Vital Signs: Initial Vital Signs Temperature 99.3 F 06/16/24 19:57 Pulse Rate 96 H 06/16/24 19:57 Respiratory Rate 16 06/16/24 19:57 Blood Pressure 109/69 06/16/24 19:57 O2 Sat by Pulse Oximetry 100 06/16/24 19:57 Pain Scale Pain Intensity 6 - Physical Exam General Appearance: alert Eye Exam: PERRL/EOMI Ears, Nose, Throat Exam: TMs normal, pharyngeal erythema (mild) Neck Exam: normal inspection Respiratory Exam: lungs clear Cardiovascular Exam: normal heart sounds Gastrointestinal/Abdomen Exam: normal bowel sounds Extremity Exam: No pedal edema Neurologic Exam: alert, cooperative Skin Exam: warm, dry SpO2 Interpretation: normal SpO2: 100 O2 Delivery: Room Air - Course Nursing assessment & vital signs reviewed: Yes Lab/Rad Data: Laboratory Results 06/16/24 06/16/24 Range/Units 20:15 20:11 Influenza Type A Ag NEGATIVE (NEGATIVE) Influenza Type B Ag NEGATIVE (NEGATIVE) RSV (PCR) NEGATIVE (NEGATIVE) SARS-CoV-2 (PCR) NEGATIVE (NEGATIVE) Group A Strep Antibody NOT DETECTED (NEGATIVE) - Progress Progress: unchanged Counseled pt/family regarding: lab results, diagnosis, need for follow-up Medical Desision Making - Diagnostic Testing Diagnostic test were ordered, analyzed, and reviewed by me: Yes - Departure Departure Disposition: Home Clinical Impression: Pharyngitis Condition: Stable Critical Care Time: No Referrals: MARTIR TOMLINSON [Primary Care Provider] - Follow up/PCP as directed Instructions: Cough, Adult (DC), Sore Throat, Adult ED Additional Instructions: Follow up with private doctor tomorrow. Forms: Work/School Release Form Prescriptions: Ibuprofen 600 mg PO Q6H #20 tablet Azithromycin 250 mg [Zithromax 250 MG TABLET] 250 mg PO ZPACK #6 tablet
[2024-06-16 21:11] LABS: INFLUENZA A NEGATIVE (NEGATIVE); INFLUENZA B NEGATIVE (NEGATIVE); RESPIRATORY SYNCTIAL VIRUS NEGATIVE (NEGATIVE); SARS-CoV-2 Xpert Express NEGATIVE (NEGATIVE)
[2024-06-16 22:22] VITALS: O2SAT 100
[2024-06-16] MEDS ORDERED: MOTRIN 600 MG ONE (23:23)
[2024-06-16] MEDS ORDERED: Zithromax 250 MG TABLET ONE (23:23)
[2024-06-16] MEDS: Zithromax 250 MG TABLET PO ONE (23:24)
[2024-06-16] MEDS: MOTRIN 600 MG PO ONE (23:24)
[2024-06-16 23:25] VITALS: BP 95/63; PULSE 89; RESP 16
== END 2024-06-16 23:23 | disposition home or self-care (01) ==
LOC: ED 19:51
DX: J02.9 Acute pharyngitis, unspecified (principal); R50.9 Fever, unspecified; R05.9 Cough, unspecified; M79.10 Myalgia, unspecified site; Z79.899 Other long term (current) drug therapy
CPT/HCPCS: 0241U; 87651; 99283; A9270-GY

== ENCOUNTER 2024-12-04 18:06 | Emergency (ER) | payer OTHER ==
[2024-12-04 19:29] VITALS: BP 114/64; PULSE 83; RESP 20; TEMP 97.6; O2SAT 100
--- NOTE | 2024-12-04 19:40 | ERPHSYRPT ---
- History of Present Illness Time Seen by Provider: 12/04/24 19:39 Source: patient Exam Limitations: no limitations Patient Subjective Stated Complaint: Right foot injury Triage Nursing Assessment: [facility] [place] Physician History: This is a 49-year-old white female patient who has a history of hypertension depression and stepped on a nail that was erica earlier today that went through her shoe. She thinks the nail was completely removed but she is not 100% certain. Her tetanus status is not up-to-date. Method of Injury: other (Patient stepped on a nail) Occurred: this evening Quality: aching Severity of Pain-Max: mild Severity of Pain-Current: mild Lower Extremities Pain: foot: right Modifying Factors: Improves With: nothing Associated Symptoms: none Allergies/Adverse Reactions: Penicillins Allergy (Intermediate, Verified 12/04/24 19:09) Hives Home Medications: Buspirone HCl 10 mg PO BID 06/11/24 [History] Fluoxetine HCl [Prozac] 40 mg PO DAILY 06/11/24 [History] Metoprolol Succinate 25 mg Xl* [Toprol-Xl 25MG Tablets] 25 mg PO DAILY 06/11/24 [History] Topiramate [Topamax] 50 mg PO DAILY 06/11/24 [History] Hx Tetanus, Diphtheria Vaccination/Date Given: No Hx Influenza Vaccination/Date Given: No Hx Pneumococcal Vaccination/Date Given: No Immunizations Up to Date: Yes Travel Risk - International Travel Have you traveled outside of the country in past 3 weeks: No - Emerging Infectious Disease Are you exhibiting symptoms associated with any current EIDs: No - Review of Systems Constitutional: No Symptoms Eyes: No Symptoms Ears, Nose, & Throat: No Symptoms Respiratory: No Symptoms Cardiac: No Symptoms Abdominal/Gastrointestinal: No Symptoms Genitourinary Symptoms: No Symptoms Musculoskeletal: No Symptoms Skin: Other (Plantar surface right foot puncture wound) Neurological: No Symptoms Psychological: No Symptoms Endocrine: No Symptoms Hematologic/Lymphatic: No Symptoms Immunological/Allergic: No Symptoms All Other Systems: Reviewed and Negative - Past Medical History Pertinent Past Medical History: Yes Neurological History: Migraines ENT History: No Pertinent History Cardiac History: No Pertinent History Respiratory History: No Pertinent History Endocrine Medical History: No Pertinent History Musculoskeletal History: Other GI Medical History: No Pertinent History History: No Pertinent History Other Medical History: KNEE SURGERY NOTED ABOVE. - Past Surgical History Past Surgical History: Yes Musculoskeletal: Orthopedic Surgery Female Surgical History: Section Other Surgical History: , knee surgery Significant Family History: no pertinent family hx - Female History Hx Last Menstrual Period: [place] Hx Now: No - Social History Smoking Status: Never smoker How long have you smoked: years Exposure to second hand smoke: No Alcohol Use: Socially Drug Use: none Patient Lives Alone: No - Social Determinants of Health Will the patient participate in the screening: Yes Do you worry about a steady place to live?: No Do you have any problems with any of the following?: No known problems In the past 12 months,have you had to go without utilities?: No Transportation Issues: No Has anyone in your support network made you feel unsafe?: No Have you or anyone in your house had to go without enough: No - Nursing Vital Signs Nursing Vital Signs: Initial Vital Signs Temperature 98.2 F 12/04/24 19:06 Pulse Rate 77 12/04/24 19:06 Respiratory Rate 16 12/04/24 19:06 O2 Sat by Pulse Oximetry 99 12/04/24 19:06 Pain Scale Pain Intensity 2 - Physical Exam General Appearance: no apparent distress, alert, anxiety, obese Eyes, Ears, Nose, Throat Exam: normal ENT inspection, moist mucous membranes Neck Exam: normal inspection, non-tender, supple, full range of motion Cardiovascular/Respiratory Exam: chest non-tender, no respiratory distress Gastrointestinal/Abdominal Exam: non-tender Back Exam: normal inspection, normal range of motion, No CVA tenderness, No vertebral tenderness Hips Exam: bilateral: non-tender, normal inspection, normal range of motion, no evidence of injury Legs Exam: bilateral leg: non-tender, normal inspection, normal range of motion, no evidence of injury Knees Exam: bilateral knee: non-tender, normal inspection, normal range of motion, no evidence of injury Ankle Exam: bilateral ankle: non-tender, normal inspection, normal range of motion, no evidence of injury Foot Exam: right foot: soft tissue tenderness (Plantar surface with puncture wound. No drainage, no bleeding), left foot: non-tender, normal inspection, no evidence of injury, bilateral foot: normal range of motion Neuro/Tendon Exam: normal sensation, normal motor functions, normal tendon functions, no evidence tendon injury Mental Status Exam: alert, oriented x 3, cooperative Skin Exam: normal color, warm, dry SpO2 Interpretation: normal SpO2: 100 O2 Delivery: Room Air - Course Nursing assessment & vital signs reviewed: Yes Ordered Tests: Active Orders 24 hr Category Date Time Status FOOT (MINIMUM 3 VIEWS) Stat Exams 12/04/24 19:40 Ordered Medication Summary Discontinued Medications Generic Name Dose Route Start Last Admin Trade Name Taylor PRN Reason Stop Dose Admin Diphtheria/Tetanus/Acell Pertussis 0.5 ml 12/04/24 20:01 Tdap --Diph,Pertuss(Acell),Tet Vac/Pf 0.5 Ml Vial IM 12/04/24 20:02 .ONCE ONE Trimethoprim/Sulfamethoxazole 1 tab 12/04/24 20:01 Smz/Tmp Ds Tablet 1 Tablet PO 12/04/24 20:02 STAT ONE - Progress Progress: unchanged Progress Note: 12/04/24 20:09 My medical decision making and the assignment of low complexity to this patient's medical issue today is based on review of the patient's past medical history, review of the patient's medication list, reviewed patient drug allergy list, history present illness and physical findings on examination. The workup in this patient includes x-ray of the right foot to determine if there is any radiopaque foreign body. Differential diagnosis includes but is not limited to radiopaque foreign body, no radiopaque foreign body 12/04/24 20:11 I interpreted the preliminary report of the patient's right foot x-ray. I see no acute fracture or dislocation. There is a heel spur present. There is no radiopaque foreign body Counseled pt/family regarding: diagnosis, need for follow-up, rad results Medical Desision Making - Independent Historian Additional History obtained from: Relative/friend - Diagnostic Testing Diagnostic test were ordered, analyzed, and reviewed by me: Yes Radiological Interpretation: Interpreted by me, Teleradiologist Report - Risk of complications Minimal Risk: Minimal risk of morbidity - Departure Departure Disposition: Home Clinical Impression: Injury, foot Condition: Stable Critical Care Time: No Additional Instructions: Use Tylenol and ibuprofen for pain control if there are no contraindications. Soak the right foot 2-3 times a day for the next 2 to 3 days with Epsom salts or warm soapy water. Take your antibiotics as prescribed. Do not apply lotions ointments or creams to the site. Prescriptions: Smz/Tmp Ds Tablet [Bactrim Ds Tablet] 1 udtab PO BID #10 tablet
[2024-12-04] MEDS ORDERED: Adacel Vial IM ONE (20:07)
[2024-12-04] MEDS ORDERED: BACTRIM DS TABLET PO ONE (20:07)
[2024-12-04] MEDS: Adacel Vial IM ONE (20:14)
[2024-12-04] MEDS: BACTRIM DS TABLET PO ONE (20:14)
--- NOTE | 2024-12-05 08:41 | XRAY ---
Indication: Injury. Stepped on nail. Comparison: None 3 nonweightbearing views right foot demonstrates small posterior/plantar heel spurs. No other bony, articular, or soft tissue abnormalities.
== END 2024-12-04 20:28 | disposition home or self-care (01) ==
LOC: ED 18:06
DX: S91.331A Puncture wound without foreign body, right foot, initial encounter (principal); W22.09XA Striking against other stationary object, initial encounter; W45.0XXA Nail entering through skin, initial encounter; I10 Essential (primary) hypertension; Z79.899 Other long term (current) drug therapy; Z23 Encounter for immunization
CPT/HCPCS: 73630; 90471; 90715; 99283; A9270-GY